=== PATIENT | male | born 1980 | race Caucasian/White ===

== ENCOUNTER 2017-10-19 12:01 | Observation (INO) | payer SELFPAY ==
[2017-10-19] MEDS ORDERED: NS 1,000 ML IV ONE (12:21)
[2017-10-19] MEDS ORDERED: ONDANSETRON 4 MG/2 ML VIAL IVP ONE (12:21)
--- NOTE | 2017-10-19 12:21 | EDPHY ---
H & P Stated Complaint: ABD PAIN X 5 H, CHILLS FEVER . STABBING Time Seen by Provider: 10/19/17 12:06 HPI/ROS: Chief Complaint: Abdominal pain HPI: 37-year-old male presenting with abdominal pain for the last several hours. He does have a history of similar about 9 months ago. Some nausea but no vomiting. No diarrhea. No fevers or chills. No chest pain or shortness of breath. No prior surgeries or medical problems. Pain is about an 8/10. There are no aggravating or alleviating factors. ROS: 10 systems were reviewed and were negative except those elements noted in the HPI. PMH: Denies Social History: No smoking, no alcohol, no recreational drug use Family History: non-contributory Physical Exam: Gen: Awake, Alert, No Distress HEENT: Nose: no rhinorrhea Eyes: PERRLA, EOMI Mouth: Moist mucosa Neck: Supple, no JVD Chest: nontender, lungs clear to auscultation Heart: S1, S2 normal, no murmur Abd: Soft, he is tender right lower quadrant with voluntary guarding Back: no CVA tenderness, no midline tenderness Ext: no edema, non-tender Skin: no rash Neuro: CN II-XII intact, Sensation grossly intact, Strength 5/5 in bilateral upper and lower extremities - Medical/Surgical History Other PMH: GASTRITIS. CONSTIPATION - Social History Smoking Status: Never smoked Constitutional: Initial Vital Signs Temperature (C) 37.9 C 10/19/17 12:05 Heart Rate 99 10/19/17 12:05 Respiratory Rate 20 10/19/17 12:05 Blood Pressure 129/80 H 10/19/17 12:05 O2 Sat (%) 95 10/19/17 12:05 O2 Delivery Mode Room Air Allergies/Adverse Reactions: No Known Allergies Allergy (Unverified 10/19/17 12:11) Home Medications: Medication Instructions Recorded Ranitidine HCl 10/19/17 Medical Decision Making ED Course/Re-evaluation: CT scan is positive for acute appendicitis per Dr. Womack. I have discussed with general surgeon. Patient 2 be transferred to [facility] for appendectomy. Patient has received ceftriaxone and Flagyl IV here. He last ate at 8:30 a.m. Last night. Last had something to drink at 9:30 a.m. This morning. - Data Points Laboratory Results: 10/19/17 12:36 POC Sodium 139 mEq/L mEq/L (135-145) POC Potassium 3.8 mEq/L mEq/L (3.3-5.0) POC Chloride 102.0 mEq/L mEq/L (97-110) POC Total CO2 23 mEq/L mEq/L (22-31) POC BUN 11 mg/dL mg/dL (7-23) POC Creatinine 1.0 mg/dL mg/dL (0.7-1.3) POC Glucose 115 mg/dL H mg/dL (70-100) POC Calcium 9.5 mg/dL mg/dL (8.5-10.4) POC Total Bilirubin 1.5 mg/dL H mg/dL (0.1-1.4) POC AST 31 IU/L IU/L (17-59) POC ALT 36 IU/L IU/L (21-72) POC Alk Phosphatase 75 IU/L IU/L (38-126) POC Total Protein 7.7 g/dL g/dL (6.3-8.2) POC Albumin 4.4 g/dL g/dL (3.5-5.0) Medications Given: Discontinued Medications Sodium Chloride (Ns) 1,000 mls @ 0 mls/hr IV ONCE ONE; Wide Open PRN Reason: Protocol Stop: 10/19/17 12:22 Last Admin: 10/19/17 12:20 Dose: 1,000 mls Morphine Sulfate (Morphine) 4 mg IVP ONCE ONE Stop: 10/19/17 12:22 Last Admin: 10/19/17 12:33 Dose: 4 mg Ondansetron HCl (Zofran) 4 mg IVP EDNOW ONE Stop: 10/19/17 12:22 Last Admin: 10/19/17 12:33 Dose: 4 mg Point of Care Test Results: CBC CBC Collection Date 10/19/17 CBC Collection Time 12:15 WBC 13.3 RBC 4.84 HGB 15.7 HCT 45.8 PLT 358 Neut # 12.5 Neut 94.2 LYMPH # 0.6 LYMPH 4.4 Other WBC # 0.2 Other WBC 1.4 MCV 94.6 Chemistry 10/19/17 12:36 POC Sodium 139 mEq/L mEq/L (135-145) POC Potassium 3.8 mEq/L mEq/L (3.3-5.0) POC Chloride 102.0 mEq/L mEq/L (97-110) POC Total CO2 23 mEq/L mEq/L (22-31) POC BUN 11 mg/dL mg/dL (7-23) POC Creatinine 1.0 mg/dL mg/dL (0.7-1.3) POC Glucose 115 mg/dL H mg/dL (70-100) POC Calcium 9.5 mg/dL mg/dL (8.5-10.4) POC Total Bilirubin 1.5 mg/dL H mg/dL (0.1-1.4) POC AST 31 IU/L IU/L (17-59) POC ALT 36 IU/L IU/L (21-72) POC Alk Phosphatase 75 IU/L IU/L (38-126) POC Total Protein 7.7 g/dL g/dL (6.3-8.2) POC Albumin 4.4 g/dL g/dL (3.5-5.0) Departure - Departure Disposition: [facility] Inpatient Acute Clinical Impression: Acute appendicitis Condition: Fair Print Language: Yakut
[2017-10-19] MEDS ORDERED: IOPAMIDOL (ISOVUE-300) 100 ML BTL ONE (12:22)
[2017-10-19] MEDS ORDERED: ceFAZolin 1 GM/5 ML SYR ONE (16:09)
[2017-10-19] MEDS ORDERED: HEPARIN 1000 UNIT/1 ML MDV ONE (16:09)
[2017-10-19] MEDS ORDERED: BUPIVACAINE/EPI 0.5% 30 ML SDV ONE (16:09)
[2017-10-19] MEDS ORDERED: MIDAZOLAM 2 MG/2 ML VIAL IVP ONE (16:14)
--- NOTE | 2017-10-19 16:14 | PDANEPAE ---
ANE History of Present Illness Laparoscopic appendectomy ANE Past Medical History - Cardiovascular History Cardiovascular History Comment: none - Pulmonary History Hx COPD: No Hx Asthma/Reactive Airway Disease: No Hx Recent Upper Respiratory Infection: No Hx Oxygen in Use at Home: No Hx Sleep Apnea: No Sleep Apnea Screening Result - Last Documented: Negative - Neurologic History Hx Cerebrovascular Accident: No Hx Seizures: No Hx Dementia: No - Endocrine History Hx Diabetes: No - Renal History Hx Renal Disorders: No - Liver History Hx Hepatic Disorders: No - Neurological & Psychiatric Hx Hx Neurological and Psychiatric Disorders: No - Cancer History Hx Cancer: No - Congenital Disorder History Hx Congenital Disorders: No - GI History Hx Gastrointestinal Disorders: Yes Gastrointestinal History Comment: gerd - Chronic Pain History Chronic Pain: No - Surgical History Prior Surgeries: none ANE Review of Systems Review of systems is: negative Review of Systems: - Exercise capacity METS (RN): 6 METS ANE Patient History - Allergies Allergies/Adverse Reactions: No Known Allergies Allergy (Unverified 10/19/17 12:11) - Home Medications Home medications: home medication list seen and reviewed Home Medications: Ranitidine HCl 10/19/17 [Last Taken Unknown] - NPO status NPO Since - Liquids (Date): 10/19/17 NPO Since - Liquids (Time): 09:30 NPO Since - Solids (Date): 10/19/17 NPO Since - Solids (Time): 09:30 - Anes Hx Anes Hx: no prior problems - Smoking Hx Smoking Status: Never smoked - Family Anes Hx Family Anes Hx: none Family Hx Anesthesia Complications: none ANE Labs/Vital Signs - Vital Signs Vital Signs: reviewed preoperatively; see RN documention for details Blood Pressure: 110/70 Heart Rate: 96 Respiratory Rate: 16 O2 Sat (%): 95 Height: 157.48 cm Weight: 65.771 kg ANE Physical Exam - Airway Neck exam: FROM Mallampati Score: Class 2 Mouth exam: dentures - Pulmonary Pulmonary: no respiratory distress - Cardiovascular Cardiovascular: regular rate and rhythym - ASA Status ASA Status: II, E ANE Anesthesia Plan Anesthesia Plan: general endotracheal anesthesia (RSI)
[2017-10-19] MEDS ORDERED: MIDAZOLAM 2 MG/2 ML VIAL ONE (16:15)
[2017-10-19] MEDS ORDERED: BUPIVACAINE 0.5% 30 ML SDV ONE (16:26)
[2017-10-19] MEDS ORDERED: SUGAMMADEX SODIUM 200 MG/2 ML VIAL IVP ONE (16:33)
[2017-10-19] MEDS ORDERED: ROCURONIUM 50 MG/5 ML VIAL ONE (16:33)
[2017-10-19] MEDS ORDERED: fentaNYL 250 MCG/5 ML INJ ONE (16:34)
[2017-10-19] MEDS ORDERED: LR 1,000 ML IV ONE (16:34)
[2017-10-19] MEDS ORDERED: LIDOCAINE 2% 100 MG/5 ML SYR ONE (16:34)
[2017-10-19] MEDS ORDERED: DEXAMETHASONE 4 MG/ML VIAL ONE (16:34)
[2017-10-19] MEDS ORDERED: ONDANSETRON 4 MG/2 ML VIAL ONE (16:34)
[2017-10-19] MEDS ORDERED: PROPOFOL 200 MG/20 ML VIAL ONE (16:36)
--- NOTE | 2017-10-19 17:16 | PDGENHP ---
History & Physical Chief Complaint: rlq pain History of Present Illness: 37m with 12 hrs rlq pain/ +appe on scan/ temp>38/ pain worse with movement Pertinent Past, Social, Family History: phx: -. meds: none. nka. ros: - 10 pt review/ nonsmoker Relevant Physical Exam: gen alert 37 male. heent nonicteric, no nodes, no oral lesions. chest clear. cor rr. abd soft, tender rlq with rebound and guarding / no hernias. gen ok. extrem full pulses. neuro ok. psych stable, alert Cardiorespiratory Assessment: imp: acute appendicitis. plan: lap appe
[2017-10-19] MEDS ORDERED: HYDROCODONE/APAP 5/325 TAB PO PRN (17:24)
[2017-10-19] MEDS ORDERED: oxyCODONE IR 5 MG TAB PO PRN (17:24)
[2017-10-19] MEDS ORDERED: MEPERIDINE 25 MG/0.5 ML AMP IVP PRN (17:24)
[2017-10-19] MEDS ORDERED: DEXAMETHASONE 4 MG/ML VIAL IVP PRN (17:24)
[2017-10-19] MEDS ORDERED: ONDANSETRON 4 MG/2 ML VIAL IVP PRN ×2 (17:24→18:03)
[2017-10-19] MEDS ORDERED: ACETAMINOPHEN 500 MG TAB PO PRN (17:24)
[2017-10-19] MEDS ORDERED: ALBUTEROL 3 ML DEYVIAL IH PRN (17:24)
[2017-10-19] MEDS ORDERED: PROMETHAZINE HCL 25 MG/ML INJ IVP PRN (17:24)
[2017-10-19] MEDS ORDERED: HYDROmorphONE/DILAUDID 1 MG/ML INJ IVP PRN ×2 (17:24→18:03)
[2017-10-19] MEDS ORDERED: NALOXONE HCL 0.4 MG/ML INJ IVP PRN (17:24)
[2017-10-19] MEDS ORDERED: fentaNYL 100 MCG/2 ML INJ IVP PRN (17:24)
--- NOTE | 2017-10-19 17:26 | POSTANESTH ---
Post Anesthetic Evaluation Cardiovascular Status: Normal, Stable, Similar to Pre-Op Cond Respiratory Status: Normal, Stable, Similar to Pre-op Cond. Level of Consciousness/Mental Status: Can Participate in Eval, Mildly Sleepy, Arousable Pain Control: Adequate, Prn Tx Ordered Nausea/Vomiting Control: Adequate, Prn Tx Ordered Complications Possibly Related to Anesthesia: None Noted
--- NOTE | 2017-10-19 18:01 | POSTOPPROG ---
Post Op Note Date of Operation: 10/19/17 Surgeon: Bin Figueroa Anesthesiologist: VALERIO Anesthesia: GET(General Endotracheal) Pre-op Diagnosis: ACUTE APPENDICITIS Post-op Diagnosis: SAME Indication: PAIN Procedure: LAP APPY Findings: ACUTE APPENDICITIS, NON PERFORATED Inf/Abcess present in the surg proc area at time of surgery?: Yes Depth: Organ Space EBL: Minimal Complications: NONE Specimen(s): APPENDIX
[2017-10-19] MEDS ORDERED: D5W 1/2 NS W/ 20 KCl/L 1,000 ML IV SCH (18:15)
--- NOTE | 2017-10-19 18:54 | GOP ---
DATE OF OPERATION: 10/19/2017 SURGEON: Bin Figueroa MD ANESTHESIOLOGIST: Dr. Richard. PREOPERATIVE DIAGNOSIS: Acute appendicitis. POSTOPERATIVE DIAGNOSIS: Acute appendicitis. PROCEDURE PERFORMED: Laparoscopic appendectomy. FINDINGS: A big, swollen, inflamed appendix in the right lower quadrant adherent to the abdominal wa ll, has fibrinous exudate, but no signs of perforation. DESCRIPTION OF PROCEDURE: The patient was taken to the operating room where he received a satisfacto ry general endotracheal anesthesia by Dr. Richard. He was placed in the supine position, prepped an d draped in the usual sterile fashion. An infraumbilical incision was made. A Veress needle inserte d. Pneumoperitoneum was established. Trocar was introduced. Laparoscope introduced. Good visualiz ation was obtained. Two other trocars were placed in the midline under direct vision. The appendix was elevated up. It was freed up from his lateral abdominal wall attachments in the mesentery. Meso appendix was divided with the Harmonic Scalpel until the base was skeletonized. The cecum had been m obilized from the lateral abdominal wall with the Harmonic Scalpel as well. The base of the appendix and small pieces of cecum were divided with the Endo-IRA stapler and the specimen was placed in a sp ecimen bag and extracted through the upper midline port site. The suture line appeared to be hemosta tic. The wound was clean. There was no evidence of the spillage or other fluid collections. Trocar s were removed under direct vision. Trocar sites were closed with 0 Vicryl for the fascia, 4-0 Monoc ryl subcuticular stitch for skin. All layers infiltrated with 0.5% Marcaine. The specimen was sent to Pathology. /[id number]/MODL
[2017-10-19] MEDS: OXYCODONE/APAP 5/325 TAB PO PRN (21:29)
[2017-10-20 07:14] VITALS: BP 107/66
[2017-10-20] MEDS: OXYCODONE/APAP 5/325 TAB PO PRN ×2 (07:20→11:12)
--- NOTE | 2017-10-20 09:01 | SOAPPROG ---
SOAP Progress Note Assessment/Plan: Assessment: 37 y/o M s/p lap appy for nonperforated appendicitis POD #1 S: Feeling better. Some abdominal tenderness, but controlled with oral pain meds. Passing gas. O: Alert Afebrile RRR No increased WOB Abdomen: soft, but slightly distended, +BS, incisions cdi Plan: Dispo home today. Advance diet prior to discharge. 10/20/17 08:52 Objective: Vital Signs Temp Pulse Resp BP Pulse Ox 37.8 C 91 16 107/66 91 L 10/20/17 07:13 10/20/17 07:13 10/20/17 07:13 10/20/17 07:13 10/20/17 07:13 10/19/17 10/20/17 10/21/17 05:59 05:59 05:59 Intake Total 2155 Output Total 11 Balance 2144 ICD10 Worksheet Patient Problems: Problems Problem Status Onset Acute appendicitis Acute
== END 2017-10-20 11:45 | disposition home or self-care (01) ==
LOC: CED 12:01 → CEDHOLD 13:14 → F3E 18:35
PROVIDERS: ADMIT Surgery; ATTEND Surgery
PROC: 0DTJ4ZZ Resection of Appendix, Percutaneous Endoscopic Approach (ICD-10-PCS; principal; 2017-10-19 14:30)
DX: K35.80 Unspecified acute appendicitis (principal)
CPT/HCPCS: 74177-PO; 80053-PO; 96365; J0696; J1100; J1170; J2001; J2250; J2270; J2405; J2704; J3010; Q9967